=== PATIENT | female | born 1965 | race Caucasian/White ===

== ENCOUNTER 2024-09-28 09:03 | Emergency (ER) | payer OTHER, SELFPAY ==
[2024-09-28] VITALS (11 sets, daily range): BP systolic 119–169; BP diastolic 80–103; BMI 42.9
[2024-09-28 09:20] LABS: Glucose - Point of Care 82 mg/dl (70-99)
--- NOTE | 2024-09-28 09:20 | ED.CVA ---
History of Present Illness
<Esequiel Long PA-C - Last Filed: 09/29/24 15:10>
General
Chief Complaint: CVA/TIA Symptoms
Time Seen by Provider: 09/28/24 09:13
Onset of Stroke Symptoms
Onset of symptoms known: Yes
Date of onset of symptoms: 09/28/24
Time of onset of symptoms: 08:00
History of Present Illness
History of Present Illness:
59-year-old female with history of hypothyroidism and gestational hypertension no longer on medications presents to the emergency department for evaluation of difficulty with word finding. The patient states while on her phone call with her boss at
8 to 8:30 AM today she felt as though she was having difficulty finding her words. She notes that she did speak to her son by telephone early in the morning with no difficulty. is currently present with her, and did not see her this
morning to verify normal mental status however states she was normal as of last night. Patient denies any vision changes, extremity weakness, slurred speech, chest pain, shortness of breath, or headaches. No prior history of CVA. She does admit
that the symptoms seem to be improving
Past History
<Esequiel Long PA-C - Last Filed: 09/29/24 15:10>
Past History
ED Past Medical History: Asthma, GERD, Hypercholesterolemia, Hypothyroidism and Other (Celiac, IBS)
ED Past Surgical History: Other (Deviated nasal septum)
Social History
Tobacco: Non-smoker
Alcohol: None
Drug: None
Personal: ( homemaker)
Living: with family
Employment: Employed
Review of Systems
<Esequiel Long PA-C - Last Filed: 09/29/24 15:10>
Review of Systems
Allergies reviewed?: Yes
All Other Systems: ROS reviewed and negative except as documented in HPI and ROS
Phy Exam
<Esequiel Long PA-C - Last Filed: 09/29/24 15:10>
Physical Exam
Physical Exam:
GEN: Well appearing, NAD, WDWN
HEENT: Oral mucosa moist, no scleral icterus, no nasal congestion
Cardiac: Regular rate
Lung: No respiratory distress, no tachypnea
MSK: No gross deformity or injuries
Skin: Good color, no pallor or jaundice, no rashes
Neuro: AO x3; CN II-XII grossly intact. BUE strength 5/5 in all galeana, sensation intact and symmetric. BLE strength 5/5 in all galeana, sensation intact and symmetric. Normal [id number] and [id number]-[id number], no aphasia or dysarthria, no difficulty
with NIH speech cards
Psych: Calm, cooperative
Scores
<Esequiel Long PA-C - Last Filed: 09/29/24 15:10>
NIH Stroke Score
Level of Consciousness: 0 - Alert
LOC Questions: 0-Answers both correctly
LOC Commands: 0-Performs both correctly
Best Horizontal Gaze: 0-Normal
Visual [place]ale[place]: 0=Normal, no visual loss
Facial Palsy: 0=Normal, symmetrical
Motor - Right Arm: 0=No drift 10 seconds
Motor - Left Arm: 0=No drift 10 seconds
Motor - Right Le-No drift 5 seconds
Motor - Left Le-No drift 5 seconds
Limb Ataxia: 0-Absent
Sensation: 0-Normal
Best Language: 0-No aphasia
Dysarthria: 0-Normal
Extinction and Inattention: 0-No abnormality
Total Score:: 0
<Leeann Bourgeois PA-C - Last Filed: 09/29/24 00:35>
NIH Stroke Score
Total Score:: 0
Course
<Esequiel Long PA-C - Last Filed: 09/29/24 15:10>
Orders/Labs/Results
Orders:
Orders
09/28/24 09:20
Electrocardiogram (*1) Urgent
Reason for Study: QTc Monitoring
EKG- Treatment ONCE
09/28/24 09:30
Cardiovascular Evaluation Urgent
Comment: ADD ON
Complete Blood Count/With Diff Urgent
Comprehensive Metabolic Panel Urgent
Erythrocyte Sed Rate Urgent
Comment: ADD ON
Ferritin Urgent
Comment: ADD ON
Folate Urgent
Comment: ADD O
Free T4 Urgent
TSH Reflex To Free T4 Urgent
Comment: ADD ON
Vitamin B12 Urgent
Comment: ADD ON
09/28/24 09:31
CT Head & Neck Angio W/wo IV Urgent
Comment:
Reason For Exam: stroke symptoms
09/28/24 09:39
UA Reflex to Culture [Urinalysis Reflex To Culture] Urgent
Date Specimen was Collected: 09/28/24
Time Specimen was Collected: 09:34
09/28/24 11:47
Aspirin 325 mg PO NOW STA
Clopidogrel Bisulfate [Plavix] 300 mg PO NOW STA
09/28/24 11:52
MR Brain Without Contrast Urgent
Comment:
Reason For Exam: TIA/aphasia
Recent pill cam endoscopy?: No
09/28/24 13:03
Lorazepam [Ativan] 1 mg IV NOW STA
09/28/24 15:12
Consult Neurology [NEUROLOGY CONSULT] Urgent
Consulting Provider: Thom Chan
Was physician already notified: Yes
09/28/24 15:14
Add On- LAB Routine
Comments:: Please add to today's labs or draw as routine
Tests Added?: TSH reflex, Ferritin, Folate, Vit. B12, ESR, lipid profile
09/28/24 16:01
Patient Education As Directed
Type: Stroke education packet
Comment: provide to patient and family
Abnormal Lab Results
09/28/24
09:30
MCH 32.0 H pg
(27.0-31.0)
ESR 24 H mm/hour
(0-20)
ALT 39 H U/L
(0-35)
Vitamin B12 980 H pg/ml
(239-931)
Folate > 20.0 H ng/ml
(2.76-20)
TSH (Reflex) 0.02 L uIU/ml
(0.47-4.68)
09/28/24 09:30
09/28/24 09:30
Vital Signs
Initial and Last Documented VS:
Initial Vital Signs
Temp Pulse Resp BP Pulse Ox
98.3 F 66 16 169/103 100
09/28/24 09:07 09/28/24 09:07 09/28/24 09:07 09/28/24 09:07 09/28/24 09:07
Last Documented Vital Signs
Temp Pulse Resp BP Pulse Ox
98.3 F 63 15 136/91 97
09/28/24 09:07 09/28/24 17:00 09/28/24 17:00 09/28/24 17:00 09/28/24 17:00
<Leeann Bourgeois PA-C - Last Filed: 09/29/24 00:35>
Orders/Labs/Results
Orders:
Orders
09/28/24 09:20
Electrocardiogram (*1) Urgent
Reason for Study: QTc Monitoring
EKG- Treatment ONCE
09/28/24 09:30
Cardiovascular Evaluation Urgent
Comment: ADD ON
Complete Blood Count/With Diff Urgent
Comprehensive Metabolic Panel Urgent
Erythrocyte Sed Rate Urgent
Comment: ADD ON
Ferritin Urgent
Comment: ADD ON
Folate Urgent
Comment: ADD O
Free T4 Urgent
TSH Reflex To Free T4 Urgent
Comment: ADD ON
Vitamin B12 Urgent
Comment: ADD ON
09/28/24 09:31
CT Head & Neck Angio W/wo IV Urgent
Comment:
Reason For Exam: stroke symptoms
09/28/24 09:39
UA Reflex to Culture [Urinalysis Reflex To Culture] Urgent
Date Specimen was Collected: 09/28/24
Time Specimen was Collected: 09:34
09/28/24 11:47
Aspirin 325 mg PO NOW STA
Clopidogrel Bisulfate [Plavix] 300 mg PO NOW STA
09/28/24 11:52
MR Brain Without Contrast Urgent
Comment:
Reason For Exam: TIA/aphasia
Recent pill cam endoscopy?: No
09/28/24 13:03
Lorazepam [Ativan] 1 mg IV NOW STA
09/28/24 15:12
Consult Neurology [NEUROLOGY CONSULT] Urgent
Consulting Provider: Thom Chan
Was physician already notified: Yes
09/28/24 15:14
Add On- LAB Routine
Comments:: Please add to today's labs or draw as routine
Tests Added?: TSH reflex, Ferritin, Folate, Vit. B12, ESR, lipid profile
09/28/24 16:01
Patient Education As Directed
Type: Stroke education packet
Comment: provide to patient and family
Abnormal Lab Results
09/28/24
09:30
MCH 32.0 H pg
(27.0-31.0)
ESR 24 H mm/hour
(0-20)
ALT 39 H U/L
(0-35)
Vitamin B12 980 H pg/ml
(239-931)
Folate > 20.0 H ng/ml
(2.76-20)
TSH (Reflex) 0.02 L uIU/ml
(0.47-4.68)
09/28/24 09:30
09/28/24 09:30
Vital Signs
Initial and Last Documented VS:
Initial Vital Signs
Temp Pulse Resp BP Pulse Ox
98.3 F 66 16 169/103 100
09/28/24 09:07 09/28/24 09:07 09/28/24 09:07 09/28/24 09:07 09/28/24 09:07
Last Documented Vital Signs
Temp Pulse Resp BP Pulse Ox
98.3 F 63 15 136/91 97
09/28/24 09:07 09/28/24 17:00 09/28/24 17:00 09/28/24 17:00 09/28/24 17:00
<Esequiel Long PA-C - Last Filed: 09/29/24 15:10>
MDM/Problems Addressed
MDM/Problems Addressed:
59-year-old female presenting with transient episode of aphasia, questionable dysarthria. Symptoms had resolved on arrival and she was noted to have an NIH of 0. She remained stable in the ED with no recurrent symptoms. She is not a candidate for
thrombolytics on the basis of resolved symptoms. Patient had imaging in the ED showing no evidence for intracranial hemorrhage or large vessel occlusion. Case was then discussed with neurology who recommended we obtain MRI from the ED for further
assessment. This MRI was completed showing left frontal territory acute ischemic stroke which is consistent with her symptoms. She was initiated on loading doses of aspirin and Plavix. Neurology was formally consulted for ED evaluation to make
further recommendations and the case was signed out to Leeann Bourgeois PA-C pending final neurology disposition decision
<Leeann Bourgeois PA-C - Last Filed: 09/29/24 00:35>
*Critical Care Note
Total Time (30-74mins, 75-104mins- exclusive of procedures): Not Applicable
<Esequiel Long PA-C - Last Filed: 09/29/24 15:10>
Update Note
Update Note:
09/28/2024 0932 AM: Discussed case with neurology on-call. At this current time will not call this as a stroke alert given that the patient has an NIH of 0 and clearly reports improving symptoms. She is not a thrombolytic candidate on the basis of
NIH of 0/nondisabling symptoms and improving symptoms
<Leeann Bourgeois PA-C - Last Filed: 09/29/24 00:35>
Update Note
Update Note:
09/28/2024 0932 AM: Discussed case with neurology on-call. At this current time will not call this as a stroke alert given that the patient has an NIH of 0 and clearly reports improving symptoms. She is not a thrombolytic candidate on the basis of
NIH of 0/nondisabling symptoms and improving symptoms
Update 4:20PM: Received patient in sign out. Patient comfortable and well appearing on my exam with no neuro deficits. Discussed with neurology, Dr. Chan, who also discussed with cardiology. Cardiology does not see indication for admission to
hospital and immediate telemetry monitoring. However � given known PFO � Holter monitor and cardiology follow up outpatient will be extremely important. From a neurologic perspective � patient has been given aspirin and Plavix load. Neurology
comfortable with discharge home at this time. Cardiology f/u appt w/ CBC cardiology scheduled. Patient aware and will contact office early next week to arrange holter pick-up. Close return precautions discussed.
ED Attending Note
<Esequiel Long PA-C - Last Filed: 09/29/24 15:10>
-
Portions of this chart may have been created with voice recognition software.� Occasional wrong word or��sound alike� substitutions may have occurred due to the inherent limitations of voice recognition software.
Discharge Plan
Departure
Patient Disposition: Home (Routine Discharge)
Date of Disposition: 09/28/24
Time of Disposition: 16:44
Patient with high blood pressure during this ER visit?: Yes
Discharge Problem:
Stroke
Instructions: Stroke (DC), Patent foramen ovale
Prescriptions:
New
clopidogrel [Plavix] 75 mg tablet
75 mg PO DAILY Qty: 21 0RF
aspirin 81 mg tablet
81 mg PO DAILY Qty: 30 0RF
No Action
Theragen Tablet
1 tab PO DAILY
omeprazole 40 mg Capsule,Delayed Release(Dr/Ec)
40 mg PO DAILY
aspirin 81 mg Tablet,Delayed Release (Dr/Ec)
81 mg PO DAILY@1600
levothyroxine [Synthroid] 150 mcg Tablet
150 mcg PO DAILY
docusate sodium [Colace] 100 mg Capsule
100 mg PO DAILY
fluticasone propionate [Flonase] 50 mcg/actuation [place],Suspension
1 spray INTRANASAL DAILY
loratadine [Claritin] 10 mg Tablet
10 mg PO DAILY
buspirone [BuSpar] 15 mg Tablet
15 mg PO BID
bupropion HCl [Wellbutrin XL] 150 mg Tablet Extended Release 24 Hr
150 mg PO DAILY
Xdemvy 0.25 % Drops
1 drp BOTH EYES Q12H
Zepbound 10 mg/0.5 mL Pen Injector
5 mg SC FR
Referrals:
Ebonie Melendez CRNP [Family Provider] -
Milady Shankar MD [Active] - 10/15/24 2:00 pm (You have a follow up visit with Dr. Shankar at the [place] office. Please call with questions. )
Activity Restrictions/Additional Instructions:
RETURN TO THE EMERGENCY DEPARTMENT WITH ANY CHEST PAIN, SHORTNESS OF BREATH, SEVERE HEADACHE, WEAKNESS IN EXTREMITIES, DIFFICULTY AMBULATING, DIFFICULTY WITH SPEECH, PERSISTENT DIZZINESS, VISUAL CHANGES, OR ANY OTHER CONCERNS
- As discussed�your MRI performed in the emergency department shows evidence of likely small acute strokes. 2 prescriptions have been sent to your pharmacy. You should take these as directed.
- You will require close follow-up with cardiology for cardiac monitoring. An appointment has been scheduled for you above on 10/15/[address] Shankar. Please contact their office on Tuesday to confirm appointment/for any further questions.
- Per cardiology�'The cardiology office is working on scheduling a 2 week heart monitor. You will be called to arrange placement of monitor early next week.'
- Continue to take all other medications as prescribed. Stay well-hydrated.
Monitor your symptoms closely and return to the emergency department with any acute worsening/new symptoms or any other concerns
Interventions
Interventions:
*Risk Screen - Suicide Last Done: 09/28/24 09:07
*General Assessment Last Done: 09/28/24 09:25
*Neglect/Abuse Screening Last Done: 09/28/24 09:07
*ED- Fall Risk Assessment Last Done: 09/28/24 09:25
*ED COVID-19 Vaccine History Last Done: 09/28/24 09:25
*Nursing Disposition Last Done: 09/28/24 17:23
ED- Pulmonary Assessment Last Done: 09/28/24 09:25
ED- Neurological Assessment Last Done: 09/28/24 16:01
ED- Cardiac Assessment Last Done: 09/28/24 09:25
ED Swallowing Screen Last Done: 09/28/24 11:54
Discharge Date and Time
Discharge Date/Time: 09/28/24 17:23
Print Language: PANAMANIAN
[2024-09-28 09:44] LABS: % Eosinophils 2.4 % (0-6); % Immature Granulocytes 0.1 % (0-0.5); % Monocytes 8.5 % (1.7-9.3); Absolute Basophils 0.1 10^3/uL (0-0.2); Absolute Eosinophils 0.2 10^3/uL (0-0.7); Absolute Monocytes 0.6 10^3/uL (0.1-0.6); Absolute Neutrophils 4.1 10^3/uL (1.4-6.5); Hematocrit 40.6 % (37.0-47.0); Hemoglobin 13.9 g/dL (12.0-16.0); Mean Corp Hgb Conc. 34.2 g/dL (33.0-37.0); Mean Corpuscular Volume 93.5 fL (81.0-99.0); Mean Platelet Volume 10.3 fL (7.4-10.4); Nucleated Red Blood Cells % 0 %; Platelet Count 269 10^3/uL (130-400); Red Blood Cell Count 4.34 10^6/uL (4.20-5.40); Red Cell Dist. Width 12.1 % (11.5-14.5); White Blood Cell Count 6.9 10^3/uL (4.8-10.8)
[2024-09-28 09:52] LABS: Urine Albumin Negative (Neg - Trace); Urine Bilirubin Negative (Negative); Urine Character Clear (Clear); Urine Color Yellow; Urine Glucose Negative (Negative); Urine Ketone Negative (Negative); Urine Leukocyte Negative (Negative); Urine Nitrite Negative (Negative); Urine Occult Blood Negative (Negative); Urine Specific Gravity 1.005 (<1.030); Urine Urobilinogen Negative (Neg - 1+); Urine pH 6.5 (5.0-9.0)
[2024-09-28 10:19] LABS: ALT (SGPT) 39 U/L (0-35); AST (SGOT) 35 U/L (14-36); Albumin 4.8 g/dl (3.5-5.0); Alkaline Phosphatase 93 U/L (38-126); Blood Urea Nitrogen 17 mg/dl (7-17); Calcium 9.9 mg/dl (8.4-10.2); Carbon Dioxide 25 mmol/L (22-30); Chloride 103 mmol/L (98-107); Estimated Creatinine Clearance > 125 ml/min; Glucose 89 mg/dl (70-99); Potassium 4.4 mmol/L (3.5-5.1); Sodium 141 mmol/L (135-145); Total Bilirubin 0.9 mg/dl (0.2-1.3); Total Protein 7.7 g/dl (6.3-8.2); eGFR > 60.00
[2024-09-28] MEDS: PLAVIX 300 MG PO (11:56)
[2024-09-28] MEDS: ASPIRIN 325 MG PO (11:56)
[2024-09-28] MEDS: ATIVAN 1 MG IV (13:06)
--- NOTE | 2024-09-28 15:13 | CON.NEURO ---
Neuro Assessment/Plan
Assessment
Recurrent onset of aphasia with additional symptomatology and known history of patent foramen ovale treated chronically with aspirin
Based on MRI findings suggestive of acute lesions of lacunar size involving the left MCA territory, the diagnosis is acute ischemic stroke.
Plan
Continue patient's usual aspirin
Initiate clopidogrel for 21 days then discontinue
I agree with loading doses for both aspirin and clopidogrel which have been given
Check lipid profile and initiate atorvastatin 40 mg if LDL greater than 70.
Provide medical educational materials
Meet with outpatient cardiology regarding eventual PFO closure
Patient should have weeks of cardiac monitoring for possible atrial fibrillation
Will follow as needed
Consultation
Order
Date of Consultation: 09/28/24
Requesting Provider: Emergency department provider
Reason for Consult: Aphasia
Subjective/Objective
Subjective Data
Date of Service: September 28, 2024
Right-Handed
Patient was in her usual state of health when she developed sudden onset of slurred words while at work lasting 15 minutes. The patient has had prior episodes beginning approximately 6 months ago with 2 separate occasions not associated with
additional symptoms lasting a few minutes before spontaneously resolving. Today's episode was associated instead with a headache, dizziness, and tingling in the face (bilateral V3 distribution). The aphasia resolved although the headache continued
with a throbbing nature and intensity of 2/10 max 5/10. The patient's tingling in face and dizziness resolved at same time after 2 hours. No known modifying factors.
Objective Data
Vital Signs
Temp Pulse Resp BP Pulse Ox
36.8 C 68 16 119/93 96
09/28/24 09:07 09/28/24 15:00 09/28/24 15:00 09/28/24 15:00 09/28/24 15:00
Lab Results
09/28/24 09:30
09/28/24 09:30
Sodium 141 mmol/L (135-145) 09/28/24 09:30
Potassium 4.4 mmol/L (3.5-5.1) 09/28/24 09:30
BUN 17 mg/dl (7-17) 09/28/24 09:30
Glucose 89 mg/dl (70-99) 09/28/24 09:30
Calcium 9.9 mg/dl (8.4-10.2) 09/28/24 09:30
Patient Allergies
ciprofloxacin [From Cipro] Allergy (Intermediate, Verified 09/28/24 09:07)
Itching
nitrofurantoin [From Macrobid] Allergy (Intermediate, Verified 09/28/24 09:07)
Unknown
no wheat Allergy (Uncoded 09/28/24 09:07)
celiac disease
CVA Assessment
Onset of Stroke Symptoms
Onset of symptoms known: Yes
Date of onset of symptoms: 09/28/24
Time of onset of symptoms: 08:30
Time pt last seen normal is known: Yes
Date last time pt seen normal: 09/28/24
Time last time pt seen normal: 08:30
NIH Stroke Score
Level of Consciousness: 0 - Alert
LOC Questions: 0-Answers both correctly
LOC Commands: 0-Performs both correctly
Best Horizontal Gaze: 0-Normal
Visual Galeana: 0=Normal, no visual loss
Facial Palsy: 0=Normal, symmetrical
Motor - Right Arm: 0=No drift 10 seconds
Motor - Left Arm: 0=No drift 10 seconds
Motor - Right Le-No drift 5 seconds
Review of Systems
-
History Source: Patient and Family
All other systems: Reviewed and negative
EENT: Negative Swallowing Difficulty
Respiratory: Negative Trouble Breathing
Cardiac: Negative Chest Pain
Abdomen/GI: Negative Incontinence of Stool
Genitourinary: Negative Incontinence
Musculoskeletal: Negative Back Pain or Neck Pain
Neuro: Headache (bifrontal) and Other (tingling in face, bilateral V3)
Physical Exam
-
General: No Apparent Distress and Appears Stated Age
Eyes: OU Absent Papilledema, Round OU, [place] Conjunctivae and No Ptosis
HEENT: Anicteric and Moist Mucous Membranes
Neck: Full Range of Motion
Respiratory: No Dyspnea
Cardiac: No JVD
GI: Non-distended
Skin: Unremarkable
Extremities: No Clubbing, No Cyanosis and No Edema
Psych: Intact Judgement/Insight
Extended Neurological Exam
Mood & Affect: Mood Unremarkable and Affect Unremarkable
Attention Span & Concentration: Awake, Alert, Interactive and No Difficulty with 2 Step Request
Memory: Unremarkable
Tremor: Hand Tremor Absent and Head Tremor Absent
Speech: Quality Unremarkable and Quantity Unremarkable
Cranial Nerve II: Left Eye: Pupillary Reactivity Unremarkable, Pupillary Size Unremarkable and Visual Galeana Intact
Cranial Nerve II: Right Eye: Pupillary Reactivity Unremarkable, Pupillary Size Unremarkable and Visual Galeana Intact
Cranial Nerves III, IV, : Extraocular Movement: Extraocular Movement Full in all Directions
Cranial Nerve VII: Facial Symmetry: Normal Facial Symmetry
Cranial Nerve VIII: Hearing: Unremarkable Hearing to Normal Conversational Volume
Cranial Nerves IX, X: Palate Movement: Palate Elevation Symmetric
Cranial Nerve XI: Shoulder Shrug: Unremarkable
Cranial Nerve XII: Tongue Protusion: Midline
Muscle Strength, Overall: Full Throughout
Muscle Bulk & Tone: Bulk Unremarkable and Tone Unremarkable
Pronator Drift: No Drift in Upper Extremities
Deep Tendon Reflexes: Trace Throughout
Touch Sensation: Unremarkable
Coordination: [id number]-[id number]-[id number] Testing Unremarkable
Babinski Sign: Absent Bilaterally
Data Reviewed
-
CT-A: Report Reviewed
MRI Head: Report Reviewed and Image Reviewed
Labs: Report Reviewed
Lipid Profile: Ordered and Pending
Reviewed with: Physician and Physician Embedded Software Programmer
Old Records: Summarized
Medications
-
Home Medications
�Medication �Instructions �Recorded
biotin 1 mg tablet 1 mg PO DAILY 06/11/11
buspirone 15 mg tablet (BuSpar) 7.5 mg PO DAILY 06/11/11
cholecalciferol (vitamin D3) 25 1,000 unit PO DAILY 06/11/11
mcg (1,000 unit) tablet
esomeprazole magnesium 40 mg 40 mg PO DAILY 06/11/11
capsule,delayed release (Nexium)
levothyroxine 125 mcg tablet 125 mcg PO DAILY 06/11/11
Lactobacillus acidophilus 10 1 cap PO DAILY 08/03/14
billion cell capsule (Probiotic)
aspirin 81 mg tablet,delayed 81 mg PO DAILY 08/03/14
release (Aspir-Low)
Past History
Past History
ED Past Medical History: Asthma, GERD, Hypercholesterolemia, Hypothyroidism, Psychiatric (Major depression) and Other (Celiac, IBS, sleep apnea, PFO discovered 2017, pre-eclampsia)
ED Past Surgical History: Gynecological (D&C) and Other (Deviated nasal septum, bariatric surgery)
Social History
Tobacco: Non-smoker
Alcohol: None
Drug: None
Personal: ( homemaker)
Living: with family
Employment: Employed
Family History
Family History: Other (reviewed and non-contributory)
[2024-09-28 15:45] LABS: Erythrocyte Sed Rate 24 mm/hour (0-20)
[2024-09-28 16:47] LABS: HDL Cholesterol 52 mg/dl; LDL Cholesterol, Calculated 111 mg/dl; Total Cholesterol 189 mg/dl (50-199); Triglyceride 134 mg/dl (10-149); Very Low Density Lipoprotein 26 mg/dl (0-30)
[2024-09-28 17:18] LABS: TSH Reflex To Free T4 0.02 uIU/ml (0.47-4.68)
[2024-09-28 17:45] LABS: Free T4 1.97 ng/dl (0.78-2.19)
[2024-09-28 17:47] LABS: Folate > 20.0 ng/ml (2.76-20); Vitamin B12 980 pg/ml (239-931)
== END 2024-09-28 17:23 | disposition home or self-care (01) ==
LOC: EMR 09:03
PROVIDERS: Physician Assistant; CONSULT PHYSICIAN Psychiatry & Neurology Neurology; EMERGENCY PHYSICIAN Emergency Medicine; FAMILY PHYSICIAN Nurse Practitioner Primary Care
DX: I63.9 Cerebral infarction, unspecified (principal); E03.9 Hypothyroidism, unspecified; R03.0 Elevated blood-pressure reading, without diagnosis of hypertension
CPT/HCPCS: 99285; 96374; 70496; 70498; 70551; 80053; 80061; 81003; 82607; 82728; 82746; 82962; 84439; 84443; 85025; 85652; 93005; Q9967

== ENCOUNTER 2025-01-25 16:46 | Emergency (ER) | payer OTHER, SELFPAY ==
[2025-01-25 16:50] VITALS: BP 147/92
[2025-01-25 17:12] LABS: Hematocrit 37.9 % (37.0-47.0); Hemoglobin 12.9 g/dL (12.0-16.0); Mean Corp Hgb Conc. 34.0 g/dL (33.0-37.0); Mean Corpuscular Volume 92.2 fL (81.0-99.0); Nucleated Red Blood Cells % 0 %; Platelet Count 258 10^3/uL (130-400); Red Cell Dist. Width 12.7 % (11.5-14.5)
[2025-01-25 17:33] LABS: ALT (SGPT) 49 U/L (0-35); AST (SGOT) 38 U/L (14-36); Albumin 4.4 g/dl (3.5-5.0); Alkaline Phosphatase 90 U/L (38-126); Blood Urea Nitrogen 27 mg/dl (7-17); Calcium 9.5 mg/dl (8.4-10.2); Carbon Dioxide 26 mmol/L (22-30); Chloride 105 mmol/L (98-107); Glucose 100 mg/dl (70-99); Potassium 4.3 mmol/L (3.5-5.1); Sodium 137 mmol/L (135-145); Total Protein 7.1 g/dl (6.3-8.2); eGFR > 60.00
[2025-01-25 19:40] VITALS: BMI 44.5
--- NOTE | 2025-01-25 20:03 | ED.GENMED ---
History of Present Illness
General
Chief Complaint: Headache
Time Seen by Provider: 01/25/25 19:39
History of Present Illness
History of Present Illness:
59-year-old female presents to the emergency department for evaluation of dizziness and a mild headache. History of TIA several months ago but states symptoms are distinctly different. She denies any fever, chills, sweats, vision changes, neck
pain, extremity paresthesias, or speech difficulties. She denies any URI symptoms at this time, no sore throat or coughing. No prior history of vertigo
Past History
Past History
ED Past Medical History: Asthma, GERD, Hypercholesterolemia, Hypothyroidism, Psychiatric (Major depression) and Other (Celiac, IBS, sleep apnea, PFO discovered 2017, pre-eclampsia)
ED Past Surgical History: Gynecological (D&C) and Other (Deviated nasal septum, bariatric surgery)
Social History
Tobacco: Non-smoker
Alcohol: None
Drug: None
Personal: ( homemaker)
Living: with family
Employment: Employed
Family History
Family History: Other (reviewed and non-contributory)
Review of Systems
Review of Systems
Allergies reviewed?: Yes
All Other Systems: ROS reviewed and negative except as documented in HPI and ROS
Phy Exam
Physical Exam
Physical Exam:
GEN: Well appearing, NAD, WDWN
HEENT: Oral mucosa moist, no scleral icterus, no nasal congestion
Cardiac: Regular rate
Lung: No respiratory distress, no tachypnea
MSK: No gross deformity or injuries
Skin: Good color, no pallor or jaundice, no rashes
Neuro: AO x3; CN II-XII grossly intact. BUE strength 5/5 in all zhang, sensation intact and symmetric. BLE strength 5/5 in all zhang, sensation intact and symmetric, no obvious nystagmus during patient symptomatic episode
Psych: Calm, cooperative
Course
Orders/Labs/Results
Orders:
Orders
01/25/25 16:54
CT Head W/o Iv Contrast Urgent
Comment:
Reason For Exam: PEREIRA/dizziness and nausea
01/25/25 17:00
Complete Blood Count/With Diff Urgent
Comprehensive Metabolic Panel Urgent
01/25/25 19:54
Meclizine [Antivert] 25 mg PO NOW STA
Abnormal Lab Results
01/25/25
17:00
RBC 4.11 L 10^6/uL
(4.20-5.40)
MCH 31.4 H pg
(27.0-31.0)
MPV 10.6 H fL
(7.4-10.4)
Absolute Monos (auto) 0.7 H 10^3/uL
(0.1-0.6)
BUN 27 H mg/dl
(7-17)
Glucose 100 H mg/dl
(70-99)
AST 38 H U/L
(14-36)
ALT 49 H U/L
(0-35)
01/25/25 17:00
01/25/25 17:00
Vital Signs
Initial and Last Documented VS:
Initial Vital Signs
Temp Pulse Resp BP Pulse Ox
98.0 F 71 16 147/92 98
01/25/25 16:50 01/25/25 16:50 01/25/25 16:50 01/25/25 16:50 01/25/25 16:50
Last Documented Vital Signs
Temp Pulse Resp BP Pulse Ox
98.0 F 71 16 147/92 98
01/25/25 16:50 01/25/25 16:50 01/25/25 16:50 01/25/25 16:50 01/25/25 20:04
MDM/Problems Addressed
MDM/Problems Addressed:
Pain labs and head CT are unremarkable. Most likely peripheral vertigo given her fatigable symptoms. She was given meclizine with improvement and was able to ambulate steadily in the emergency department. No indication for MRI, doubt CVA.
*Pulse Oximetry
SaO2: 98
Oxygen Mode of Delivery: Room air
Patient hypoxic: no
*Critical Care Note
Total Time (30-74mins, 75-104mins- exclusive of procedures): Not Applicable
ED Attending Note
-
Portions of this chart may have been created with voice recognition software.� Occasional wrong word or��sound alike� substitutions may have occurred due to the inherent limitations of voice recognition software.
Discharge Plan
Departure
Patient Disposition: Home (Routine Discharge)
Date of Disposition: 01/25/25
Time of Disposition: 21:37
Patient with high blood pressure during this ER visit?: No
Discharge Problem:
Vertigo
Instructions: Vertigo - ED (DC)
Prescriptions:
New
meclizine 25 mg tablet
25 mg PO TID PRN (Reason: dizziness) Qty: 30 0RF
No Action
clopidogrel [Plavix] 75 mg tablet
75 mg PO DAILY Qty: 21 0RF
aspirin 81 mg tablet
81 mg PO DAILY Qty: 30 0RF
Theragen Tablet
1 tab PO DAILY
omeprazole 40 mg Capsule,Delayed Release(Dr/Ec)
40 mg PO DAILY
aspirin 81 mg Tablet,Delayed Release (Dr/Ec)
81 mg PO DAILY@1600
levothyroxine [Synthroid] 150 mcg Tablet
150 mcg PO DAILY
docusate sodium [Colace] 100 mg Capsule
100 mg PO DAILY
fluticasone propionate [Flonase] 50 mcg/actuation [place],Suspension
1 spray INTRANASAL DAILY
loratadine [Claritin] 10 mg Tablet
10 mg PO DAILY
buspirone [BuSpar] 15 mg Tablet
15 mg PO BID
bupropion HCl [Wellbutrin XL] 150 mg Tablet Extended Release 24 Hr
150 mg PO DAILY
Xdemvy 0.25 % Drops
1 drp BOTH EYES Q12H
Zepbound 10 mg/0.5 mL Pen Injector
5 mg SC FR
Referrals:
Julia Cuevas MD [Family Provider]
Interventions
Interventions:
*Risk Screen - Suicide Last Done: 01/25/25 16:50
*General Assessment Last Done: 01/25/25 19:40
*Neglect/Abuse Screening Last Done: 01/25/25 16:50
*ED- Fall Risk Assessment Last Done: 01/25/25 19:40
*ED COVID-19 Vaccine History Last Done: 01/25/25 19:40
*Nursing Disposition Last Done: 01/25/25 21:45
ED- Neurological Assessment Last Done: 01/25/25 19:40
Discharge Date and Time
Discharge Date/Time: 01/25/25 21:46
Print Language: MACEDONIAN
[2025-01-25] MEDS: ANTIVERT 25 MG PO (20:09)
== END 2025-01-25 21:46 | disposition home or self-care (01) ==
LOC: EMR 16:46
PROVIDERS: EMERGENCY PHYSICIAN Emergency Medicine; FAMILY PHYSICIAN Family Medicine
DX: R42 Dizziness and giddiness (principal); Z86.73 Personal history of transient ischemic attack (TIA), and cerebral infarction without residual deficits
CPT/HCPCS: 99285; 70450; 80053; 85025